=== PATIENT | female | born 1960 | race American Indian/Alaskan Native ===

== ENCOUNTER 2017-01-09 16:46 | Emergency (ER) | payer BC ==
[2017-01-09 16:59] VITALS: BMI 26.6
[2017-01-09 17:01] VITALS: BP 117/72; PULSE 87; RESP 16; TEMP 97.8; O2SAT 99
--- NOTE | 2017-01-09 17:35 | C.PDOC ---
History Of Present Illness 56 y/o female presents to the ED with complains of sore throat x4 days. Pt took motrin with some improvement but now has left ear pain. Denies fever, chills, vomiting, diarrhea or any other complaints. Time Seen by Provider: 01/09/17 17:03 Chief Complaint (Nursing): ENT Problem History Per: Patient History/Exam Limitations: None Onset/Duration Of Symptoms: Days Current Symptoms Are (Timing): Still Present Symptoms Have Been: Continuous Severity: Moderate Anticoagulant/Antiplatlet Use?: No Past Medical History Reviewed: Historical Data, Nursing Documentation, Vital Signs Vital Signs: Last Vital Signs Temp 97.8 F 01/09/17 16:59 Pulse 87 01/09/17 16:59 Resp 16 01/09/17 16:59 BP 117/72 01/09/17 16:59 Pulse Ox 99 01/09/17 17:35 Family History: States: Unknown Family Hx - Social History Hx Tobacco Use: Yes Hx Alcohol Use: Yes Hx Substance Use: No - Immunization History Hx Tetanus Toxoid Vaccination: No Hx Influenza Vaccination: No Hx Pneumococcal Vaccination: No Review Of Systems Except As Marked, All Systems Reviewed And Found Negative. Constitutional: Negative for: Fever, Chills ENT: Positive for: Ear Pain (left), Throat Pain Respiratory: Negative for: Cough, Shortness of Breath Gastrointestinal: Negative for: Vomiting, Diarrhea Physical Exam - Physical Exam Appears: Non-toxic, No Acute Distress Skin: Warm, Dry, No Rash Head: Atraumatic, Normacephalic Ear(s): Left: TM Erythema, Other (TM bulging), Right: Normal Nose: Other (nasal congestion) Oral Mucosa: Moist Throat: Normal, No Erythema Neck: Normal, Normal ROM, Supple Chest: Symmetrical Cardiovascular: Rhythm Regular, No Murmur Respiratory: Normal Breath Sounds, No Rales, No Rhonchi, No Wheezing Extremity: Bilateral: Atraumatic Neurological/Psych: Oriented x3, Normal Speech ED Course And Treatment O2 Sat by Pulse Oximetry: 99 (room air) Pulse Ox Interpretation: Normal Disposition - Disposition Disposition: HOME/ ROUTINE Disposition Time: 17:32 Condition: STABLE Additional Instructions: Follow up with your PMD within 1-2 days. Return to ED if feel worse. Prescriptions: Fluticasone Nasal [Flonase] 1 spr NS BID #1 spr Azithromycin [Zithromax] 250 mg PO DAILY #4 tab Instructions: Otitis Media (ED), Cold Symptoms (ED) - Clinical Impression Clinical Impression: Earache on left, Nasal congestion - PA / SHRUB GROWER / Resident Statement MD/DO has reviewed & agrees with the documentation as recorded. - Scribe Statement The provider has reviewed the documentation as recorded by the Scribe Horacio Mc All medical record entries made by the Javyibje were at my direction and personally dictated by me. I have reviewed the chart and agree that the record accurately reflects my personal performance of the history, physical exam, medical decision making, and the department course for this patient. I have also personally directed, reviewed, and agree with the discharge instructions and disposition.
== END 2017-01-09 17:43 | disposition home or self-care (01) ==
LOC: C.ER 16:46
DX: H92.02 Otalgia, left ear (principal); R09.81 Nasal congestion